=== PATIENT | female | born 1975 | race Caucasian/White ===

== ENCOUNTER 2018-05-27 10:58 | Emergency (ER) | payer OTHER ==
[~2018-05-27] VITALS: Ht 170.2 cm; Wt 81.6 kg
[~2018-05-27 10:58] MED LIST: CEPH-264 PO; HYDR-971 PO; SULF1TAB24 PO
[2018-05-27 11:38] LABS: BILIRUBIN,URINE NEGATIVE (NEG); CLARITY,URINE CLOUDY; COLOR,URINE YELLOW; NITRITE,URINE NEGATIVE (NEG); PH,URINE 5.5; PROTEIN,URINE 100 mg/dL (NEG-TRACE); UROBILINOGEN,URINE 0.2 mg/dL (0.2 mg/dL)
[2018-05-27 11:49] LABS: SQUAMOUS EPITHELIAL CELL,UR FEW /LPF
[2018-05-27 11:50] LABS: BACTERIA,URINE 0 /HPF (0-FEW); WBC,URINE 0 /HPF (0-4)
[2018-05-27 12:45] LABS: BASO # 0.1 x10^3/uL (0.0-0.2); BASO % 1 % (0-3); EOS # 0.3 x10^3/uL (0.0-0.7); EOS % 2 % (0-3); HEMATOCRIT 39.1 % (36.0-47.0); HEMOGLOBIN 13.9 g/dL (12.0-15.5); LYMPH # 2.3 x10^3/uL (1.0-4.8); LYMPH % 15 % (24-48); MEAN CORPUSCULAR HEMOGLOBIN 31 pg (25-35); MEAN CORPUSCULAR HGB CONC 36 g/dL (31-37); MEAN CORPUSCULAR VOLUME 88 fL (79-100); MONO # 0.5 x10^3/uL (0.0-1.1); MONO % 4 % (0-9); NEUT # 11.7 x10^3uL (1.8-7.7); NEUT % 78 % (31-73); PLATELET COUNT 308 x10^3/uL (140-400); RED BLOOD COUNT 4.44 x10^6/uL (3.50-5.40); RED CELL DISTRIBUTION WIDTH 13.5 % (11.5-14.5); WHITE BLOOD COUNT 14.9 x10^3/uL (4.0-11.0)
[2018-05-27] MEDS ORDERED: HYDROcodone/APAP 5/325MG 1 TAB TABLET PO ONE (12:45)
[2018-05-27 12:47] LABS: CALCIUM 8.7 mg/dL (8.5-10.1); CREATININE 0.5 mg/dL (0.6-1.0); GFR 135.3
[2018-05-27 12:53] LABS: ALBUMIN 2.8 g/dL (3.4-5.0); ALBUMIN/GLOBULIN RATIO 0.6 (1.0-1.7); TOTAL BILIRUBIN 0.2 mg/dL (0.2-1.0); TOTAL PROTEIN 7.2 g/dL (6.4-8.2)
[2018-05-27 13:08] VITALS: BP 151/75
--- NOTE | 2018-05-27 14:07 | RAD ---
CT of the abdomen and pelvis without contrast. 05/27/2018 INDICATION: Left flank pain. Hematuria. COMPARISON STUDY: None available. TECHNIQUE: Multidetector CT imaging of the abdomen and pelvis was obtained without the administration of IV contrast. FINDINGS: Heterogenous groundglass attenuation is seen throughout the visualized lung bases. Differential considerations include pulmonary edema, an atypical infectious process, or air-trapping. There is a 4 mm noncalcified nodule right lower lobe (axial image 15). Recommend CT surveillance as described at the bottom of report. The liver is diffusely low in attenuation. Findings, while nonspecific, most commonly reflects hepatic steatosis. The gallbladder has been removed. Spleen is unremarkable. The adrenal glands are unremarkable. Pancreas is unremarkable. There is no evidence of hydronephrosis, or nephrolithiasis. No ureteral stones are identified. The bladder appears to be grossly unremarkable. There is no bowel obstruction. No evidence of acute inflammatory process involving the bowel is identified. Appendix is unremarkable. No free fluid or free air is seen in the abdomen or pelvis. There is an approximately 3 cm cystic structure in the left adnexa. Fat stranding is noted most prominently within the plane between the posterior bladder and anterior uterus. The uterus is anteverted. Findings could reflect sequela of cystitis. Evaluation of the bladder wall is somewhat limited given lack of contrast and no low no overt thickening is identified. No evidence of acute osseous abnormality is seen. IMPRESSION: 1.No nephrolithiasis or acute obstructive uropathy is identified. Fat stranding noted most prominently in the plane between the posterior bladder and anterior uterus. Findings could reflect cystitis. Correlate with clinical findings and urinalysis. 2. 3 cm cystic structure in the left adnexa. Findings most likely represent an ovarian cyst. Noncontrast enhanced CT is limited for evaluation. Consider follow-up ultrasound as clinically indicated. 3. Heterogenous groundglass attenuation in bilateral lung bases. Findings could represent air-trapping, mild edema. Atypical infectious process is less likely but not excluded. 4. 4 mm noncalcified nodule, right lower lobe. Recommend CT surveillance is described below 5. Hepatic steatosis Pulmonary Nodule Followup: Fleischner Society recommendations (Radiology 2005; 237; 395-400): In a low risk patient: 4mm or less - No follow up required. >4-6mm- 12 month follow up, if unchanged, no further follow up. >6-8mm- 6-12 month follow up, then at 18-24 months if no change. >8mm- 3, 9, 24 month follow up or consideration of PET/CT. In a high risk patient: <4mm - 12 month follow up, if unchanged then no further follow up. >4-6mm- 6-12 month follow up, then at 18-24 months if no change. >6-8mm- 3-6 month follow up, then at 9-12 months and [address] DOSING PQRS STATEMENT: One or more of the following individualized dose reduction techniques were utilized for this examination: 1. Automated exposure control 2. Adjustment of the mA and/or kV according to patient size 3. Use of iterative reconstruction technique Electronically signed by: Juan Newman MD (05/27/2018 2:04 PM) [id number]
[2018-05-27] MEDS ORDERED: LEVO750T31 PO (14:23)
[2018-05-27] MEDS ORDERED: HYDR-971 PO (14:23)
--- NOTE | 2018-05-27 15:14 | PHYS DOC ---
Past Medical History Past Medical History: Diabetes-Type II, DVT, High Cholesterol, Hypertension, Other Additional Past Medical Histor: PE, COMPARTMENT SYNDROME, [place], Gallstones Past Surgical History: , Tubal ligation, Other Additional Past Surgical Histo: bilateral AKA Alcohol Use: None Drug Use: None Adult General Chief Complaint Chief Complaint: PAIN ON URINATION [facility] HPI Patient is a 42 yearOLD female with history of peripheral vascular disease, status post bilateral AKA smoking 2 packs a day presenting with urinary frequency urinary urgency and some left-sided intermittent abdominal pain for the last 10 days or so. No fever she is worried about a urinary tract infection so she came to the ER to be evaluated no vaginal discharge no vomiting abdominal pain is sharp and comes and goes intermittent in nature Review of Systems Review of Systems Constitutional: Denies fever or chills [] Eyes: Denies change in visual acuity, redness, or eye pain [] HENT: Denies nasal congestion or sore throat [] Respiratory: Denies cough or shortness of breath [] Cardiovascular: No additional information not addressed in HPI [] Neurologic: Denies headache, focal weakness or sensory changes [] Endocrine: Denies polyuria or polydipsia [] All other systems were reviewed and found to be within normal limits, except as documented in this note. Current Medications Current Medications Current Medications Medications (Trade) Dose Ordered Sig/Stewart Start Time Stop Time Status Last Admin Dose Admin Acetaminophen/ Hydrocodone Bitart (Lortab 5/325) 2 tab 1X ONCE 05/27/18 12:45 05/27/18 12:46 DC 05/27/18 12:45 2 TAB Allergies Allergies Allergies Coded Allergies Type Severity Reaction Last Updated Verified codeine Allergy Intermediate 06/17/15 No Physical Exam Physical Exam Constitutional: Well developed, well nourished, no acute distress, non-toxic appearance. [] HENT: Normocephalic, atraumatic, bilateral external ears normal, oropharynx moist, no oral exudates, nose normal. [] Eyes: PERRLA, EOMI, conjunctiva normal, no discharge. [] Neck: Normal range of motion, no tenderness, supple, no stridor. [] Pulmonary: Normal respiratory effort no increased work of breathing no obvious chest wall trauma Abdomen: Bowel sounds normal, soft, left lower quadrant mild tenderness, no masses, no pulsatile masses. [] Significant obesity noted somewhat difficult exam Skin: Warm, dry, no erythema, no rash. [] Back: No tenderness, no CVA tenderness. [] Extremities: Bilateral AKA Neurologic: Alert and oriented X 3, normal motor function, normal sensory function, no focal deficits noted. [] Psychologic: Affect normal, judgement normal, mood normal. [] Current Patient Data Vital Signs Vital Signs Date Time Temp Pulse Resp B/P (MAP) Pulse Ox O2 Delivery O2 Flow Rate FiO2 05/27/18 13:08 90 151/75 (100) 96 Room Air 05/27/18 11:30 98.3 16 98.3 Lab Values Laboratory Tests Test 05/27/18 11:30 05/27/18 11:35 05/27/18 12:25 Urine Collection Type Unknown Urine Color Yellow Urine Clarity Cloudy Urine pH 5.5 Urine Specific [place] >=1.030 Urine Protein 100 mg/dL (NEG-TRACE) Urine Glucose (UA) >=1000 mg/dL (NEG) Urine Ketones (Stick) Negative mg/dL (NEG) Urine Blood Small (NEG) Urine Nitrite Negative (NEG) Urine Bilirubin Negative (NEG) Urine Urobilinogen Dipstick 0.2 mg/dL (0.2 mg/dL) Urine Leukocyte Esterase Negative (NEG) Urine RBC 1-2 /HPF (0-2) Urine WBC 0 /HPF (0-4) Urine Squamous Epithelial Cells Few /LPF Urine Bacteria 0 /HPF (0-FEW) POC Urine HCG, Qualitative Hcg negative (Negative) White Blood Count 14.9 x10^3/uL (4.0-11.0) H Red Blood Count 4.44 x10^6/uL (3.50-5.40) Hemoglobin 13.9 g/dL (12.0-15.5) Hematocrit 39.1 % (36.0-47.0) Mean Corpuscular Volume 88 fL (79-100) Mean Corpuscular Hemoglobin 31 pg (25-35) Mean Corpuscular Hemoglobin Concent 36 g/dL (31-37) Red Cell Distribution Width 13.5 % (11.5-14.5) Platelet Count 308 x10^3/uL (140-400) Neutrophils (%) (Auto) 78 % (31-73) H Lymphocytes (%) (Auto) 15 % (24-48) L Monocytes (%) (Auto) 4 % (0-9) Eosinophils (%) (Auto) 2 % (0-3) Basophils (%) (Auto) 1 % (0-3) Neutrophils # (Auto) 11.7 x10^3uL (1.8-7.7) H Lymphocytes # (Auto) 2.3 x10^3/uL (1.0-4.8) Monocytes # (Auto) 0.5 x10^3/uL (0.0-1.1) Eosinophils # (Auto) 0.3 x10^3/uL (0.0-0.7) Basophils # (Auto) 0.1 x10^3/uL (0.0-0.2) Sodium Level 132 mmol/L (136-145) L Potassium Level 4.0 mmol/L (3.5-5.1) Chloride Level 97 mmol/L (98-107) L Carbon Dioxide Level 24 mmol/L (21-32) Anion Gap 11 (6-14) Blood Urea Nitrogen 6 mg/dL (7-20) L Creatinine 0.5 mg/dL (0.6-1.0) L Estimated GFR (Cockcroft-Gault) 135.3 BUN/Creatinine Ratio 12 (6-20) Glucose Level 351 mg/dL (70-99) H Calcium Level 8.7 mg/dL (8.5-10.1) Total Bilirubin 0.2 mg/dL (0.2-1.0) Aspartate Amino Transferase (AST) 18 U/L (15-37) Alanine Aminotransferase (ALT) 28 U/L (14-59) Alkaline Phosphatase 84 U/L (46-116) Total Protein 7.2 g/dL (6.4-8.2) Albumin 2.8 g/dL (3.4-5.0) L Albumin/Globulin Ratio 0.6 (1.0-1.7) L Laboratory Tests 05/27/18 12:25 Laboratory Tests 05/27/18 12:25 EKG EKG [] Radiology/Procedures Radiology/Procedures [] Impressions: IMPRESSION: 1.No nephrolithiasis or acute obstructive uropathy is identified. Fat stranding noted most prominently in the plane between the posterior bladder and anterior uterus. Findings could reflect cystitis. Correlate with clinical findings and urinalysis. 2. 3 cm cystic structure in the left adnexa. Findings most likely represent an ovarian cyst. Noncontrast enhanced CT is limited for evaluation. Consider follow-up ultrasound as clinically indicated. 3. Heterogenous groundglass attenuation in bilateral lung bases. Findings could represent air-trapping, mild edema. Atypical infectious process is less likely but not excluded. 4. 4 mm noncalcified nodule, right lower lobe. Recommend CT surveillance is described below 5. Hepatic steatosis Pulmonary Nodule Followup: Fleischner Society recommendations (Radiology 2005; 237; 395-400): In a low risk patient: 4mm or less - No follow up required. >4-6mm- 12 month follow up, if unchanged, no further follow up. >6-8mm- 6-12 month follow up, then at 18-24 months if no change. >8mm- 3, 9, 24 month follow up or consideration of PET/CT. In a high risk patient: <4mm - 12 month follow up, if unchanged then no further follow up. >4-6mm- 6-12 month follow up, then at 18-24 months if no change. >6-8mm- 3-6 month follow up, then at 9-12 months and [address] DOSING PQRS STATEMENT: One or more of the following individualized dose reduction techniques were utilized for this examination: 1. Automated exposure control 2. Adjustment of the mA and/or kV according to patient size 3. Use of iterative reconstruction technique Electronically signed by: Juan Temple MD (05/27/2018 2:04 PM) [id number] DICTATED and SIGNED BY: JUAN TEMPLE MD DATE: 05/27/18 1353 Course & Med Decision Making Course & Med Decision Making Pertinent Labs and Imaging studies reviewed. (See chart for details) []42-year-old female with the above medical problems presenting with intermittent left lower quadrant abdominal pain as well as urinary frequency and urgency for the last week or more. Initial urinalysis in urgent care side showed no UTI so I brought her to the back and we did a more extensive workup CT scan had the above findings Likely ovarian cyst given the time course and how well-appearing the patient is I think we can defer a pelvic ultrasound to a more routine outpatient setting she says she does have good follow-up I recommended an ultrasound in 4-6 weeks she does not clinically have torsion to me. Noted the cystitis finding given her symptoms and the cystitis finding on CT we will treat with antibiotics just in case. I told her also about the lung nodule and the importance of follow-up for this and I encouraged her to stop smoking she understands. In addition Levaquin for the UTI should also cover possible pneumonia seen on CT scan. Estimated 15 minutes discussing the care with the patient and the son there in agreement. Also blood pressure was elevateD AND PT KNOWS TO FOLOW UP FOR THS IN ONE MONTH Jackie Disclaimer Jackie Disclaimer This electronic medical record was generated, in whole or in part, using a voice recognition dictation system. Departure Departure Impression: Primary Impression: Ovarian cyst Additional Impression: Elevated blood pressure reading Disposition: HOME, SELF-CARE Condition: IMPROVED Patient Instructions: Ovarian Cyst, [id number] Additional Instructions: 1.YOU NEED REPEAT CT SCAN IN 6 MONHTS OR SO FOR A 4 MM LUNG NODULE IN THE RIGHT LOWER LOBE. 2. YOU NEED PELVIC ULTRASOUND IN 6 WEEKS TO MONITOR THE OVARIAN CYST ON OVARY. 3. YOU MAY HAVE BLADDER INFECTION AND PNEUMONIA. PLEASE TAKE ANTBIOTICS. Scripts Levofloxacin (LEVAQUIN) 750 Mg Tablet 1 TAB PO DAILY, #7 TAB Prov: MORIAH BROWNLEE MD 05/27/18 Hydrocodone/Apap 5-325 (NORCO 5-325 TABLET) 1 Each Tablet 1-2 EACH PO PRN Q6HRS PRN for PAIN, #15 as needed for pain Prov: MORIAH BROWNLEE MD 05/27/18 Problem Qualifiers MORIAH BROWNLEE MD May 27, 2018 15:14
== END 2018-05-27 14:36 | disposition home or self-care (01) ==
LOC: ER 10:58
DX: N83.202 Unspecified ovarian cyst, left side (principal); R03.0 Elevated blood-pressure reading, without diagnosis of hypertension; E11.9 Type 2 diabetes mellitus without complications; E78.00 Pure hypercholesterolemia, unspecified; I10 Essential (primary) hypertension; Z88.5 Allergy status to narcotic agent; Z86.718 Personal history of other venous thrombosis and embolism
CPT/HCPCS: 36415; 74176; 80053; 81001; 81025; 85025; 99285

== ENCOUNTER 2018-06-05 15:50 | Emergency (ER) | payer OTHER ==
[~2018-06-05] VITALS: Ht 170.2 cm; Wt 81.6 kg
[~2018-06-05 15:50] MED LIST changes: +LEVO750T31 PO
[2018-06-05 16:20] LABS: BILIRUBIN,URINE NEGATIVE (NEG); CLARITY,URINE CLEAR; COLOR,URINE YELLOW; NITRITE,URINE NEGATIVE (NEG); PROTEIN,URINE 100 mg/dL (NEG-TRACE); UROBILINOGEN,URINE 0.2 mg/dL (0.2 mg/dL)
--- NOTE | 2018-06-05 16:32 | PHYS DOC ---
Past Medical History Past Medical History: Diabetes-Type II, DVT, High Cholesterol, Hypertension, Other Additional Past Medical Histor: PE, COMPARTMENT SYNDROME, [place], Gallstones Past Surgical History: , Tubal ligation, Other Additional Past Surgical Histo: bilateral AKA Alcohol Use: None Drug Use: None Adult General Chief Complaint Chief Complaint: LOWER EXT PAIN [facility] HPI Patient is a 42 year old female with history of hypertension, diabetes type 2, hypertension and high cholesterol who presents today complaining of 6 out of 10 pain to the left lateral thigh that has been going on for one week. Patient has no known injury. Has history of bilateral AKA. Patient describes the pain as sharp. She states the pain is constant. She states she was seen in the ED 9 days ago and was diagnosed with UTI put on Levaquin as well as left ovarian cyst. She states she has an appointment with her own doctor on June 11, 2018. She states she cannot wait until then. She states her pain has continued. Patient denies any fever, nausea vomiting. Review of Systems Review of Systems Constitutional: Denies fever or chills [] Eyes: Denies change in visual acuity, redness, or eye pain [] HENT: Denies nasal congestion or sore throat [] Respiratory: Denies cough or shortness of breath [] Cardiovascular: No additional information not addressed in HPI [] GI: Reports left pelvic pain. Denies nausea, vomiting, bloody stools or diarrhea [] : Denies dysuria or hematuria [] Musculoskeletal: Left lateral thigh pain Integument: Denies rash or skin lesions [] Neurologic: Denies headache, focal weakness or sensory changes [] All other systems were reviewed and found to be within normal limits, except as documented in this note. Current Medications Current Medications Current Medications Medications (Trade) Dose Ordered Sig/Stewart Start Time Stop Time Status Last Admin Dose Admin Acetaminophen/ Hydrocodone Bitart (Lortab 5/325) 2 tab 1X ONCE 06/05/18 16:45 06/05/18 16:46 DC Allergies Allergies Allergies Coded Allergies Type Severity Reaction Last Updated Verified codeine Allergy Intermediate 06/17/15 No Physical Exam Physical Exam Constitutional: Well developed, well nourished, no acute distress, non-toxic appearance. [] HENT: Normocephalic, atraumatic, bilateral external ears normal, oropharynx moist, no oral exudates, nose normal. [] Eyes: PERRLA, EOMI, conjunctiva normal, no discharge. [] Neck: Normal range of motion, no tenderness, supple, no stridor. [] Cardiovascular:Heart rate regular rhythm, no murmur [] Lungs & Thorax: Bilateral breath sounds clear to auscultation [] Abdomen: Bowel sounds normal, soft, no tenderness, no masses, no pulsatile masses. [] Skin: Warm, dry, no erythema, no rash. [] Back: No tenderness, no CVA tenderness. [] Extremities: No tenderness, no cyanosis, no clubbing, ROM intact, no edema. Bilateral AKA Neurologic: Alert and oriented X 3, normal motor function, normal sensory function, no focal deficits noted. [] Psychologic: Affect normal, judgement normal, mood normal. [] Current Patient Data Vital Signs Vital Signs Date Time Temp Pulse Resp B/P (MAP) Pulse Ox O2 Delivery O2 Flow Rate FiO2 06/05/18 17:30 81 153/77 (102) 92 Room Air 06/05/18 16:40 18 06/05/18 15:55 98.6 98.6 Lab Values Laboratory Tests Test 06/05/18 16:00 Urine Collection Type Unknown Urine Color Yellow Urine Clarity Clear Urine pH 6.0 Urine Specific [place] 1.025 Urine Protein 100 mg/dL (NEG-TRACE) Urine Glucose (UA) >=1000 mg/dL (NEG) Urine Ketones (Stick) Negative mg/dL (NEG) Urine Blood Moderate (NEG) Urine Nitrite Negative (NEG) Urine Bilirubin Negative (NEG) Urine Urobilinogen Dipstick 0.2 mg/dL (0.2 mg/dL) Urine Leukocyte Esterase Negative (NEG) Urine RBC 1-2 /HPF (0-2) Urine WBC Occ /HPF (0-4) Urine Squamous Epithelial Cells Few /LPF Urine Bacteria Few /HPF (0-FEW) EKG EKG [] Radiology/Procedures Radiology/Procedures []PROCEDURE: HIP LEFT 2V WITH PELVIS EXAM: Pelvis and left hip, 3 views. HISTORY: Pain. COMPARISON: None. FINDINGS: A frontal view the pelvis and 2 views of the left hip are obtained. There is no fracture, dislocation or subluxation. There are clips within the proximal left thigh. IMPRESSION: No acute osseous finding. Electronically signed by: Anabel Romo MD (06/05/2018 4:38 PM) [id number] DICTATED and SIGNED BY: ANABEL ROMO MD DATE: 06/05/18 0472 Course & Med Decision Making Course & Med Decision Making Pertinent Labs and Imaging studies reviewed. (See chart for details) This is a 42-year-old female patient presenting to the ED today with complaints of left lateral thigh pain, no injury. Pain appears musculoskeletal. Patient has history of bilateral AKA. Also complaining of left pelvic pain. She was seen in the ED a couple days ago and was diagnosed with left ovarian cyst. She states she is out of hydrocodone. She has an appointment with her PCP on June 11, 2018. Urine analysis is negative for infection, left hip x-rays including pelvic and negative for any acute findings. Patient was given prescription for hydrocodone 10 tablets and instructed to use it twice leaving until her appointment with her PCP on June 11, 2018. Also reminded to follow- up with the C.O.D. CLERK for repeat ultrasound for the left ovarian cyst. Staff Physician Addendum: I was working in the ER during the course of this patient's visit. I was available for consultation as needed, but I was not directly involved in the care of this patient. Dragon Disclaimer Dragon Disclaimer This electronic medical record was generated, in whole or in part, using a voice recognition dictation system. Departure Departure Impression: Primary Impression: Left thigh pain Additional Impression: Left lower quadrant pain Disposition: 01 HOME, SELF-CARE Condition: STABLE Referrals: SORAYA MOORE MD (PCP) Follow-up in one week Patient Instructions: Musculoskeletal Pain Additional Instructions: You were evaluated in the emergency room for what appears to be musculoskeletal pain to the left lateral thigh. We put you on pain medications, take them wisely until you're seen by your primary care doctor as well as C.O.D. CLERK. Please follow-up with the C.O.D. CLERK for repeat ultrasound for the left ovarian cyst that you were diagnosed with the last time you were seen in the emergency room. Scripts Hydrocodone/Apap 5-325 (NORCO 5-325 TABLET) 1 Each Tablet 1 TAB PO Q8HRS PRN for PAIN, #10 TAB Prov: DEISY RUIZ APRN 06/05/18 Problem Qualifiers DEISY RUIZ APRN Jun 05, 2018 16:32 MORIAH BROWNLEE MD Jun 06, 2018 07:15
[2018-06-05] MEDS: HYDROcodone/APAP 5/325MG 1 TAB TABLET PO ONE ×2 (16:39→16:40)
[2018-06-05 16:40] LABS: BACTERIA,URINE FEW /HPF (0-FEW); SQUAMOUS EPITHELIAL CELL,UR FEW /LPF; WBC,URINE OCC /HPF (0-4)
--- NOTE | 2018-06-05 16:42 | RAD ---
EXAM: Pelvis and left hip, 3 views. HISTORY: Pain. COMPARISON: None. FINDINGS: A frontal view the pelvis and 2 views of the left hip are obtained. There is no fracture, dislocation or subluxation. There are clips within the proximal left thigh. IMPRESSION: No acute osseous finding. Electronically signed by: Anabel Mena MD (06/05/2018 4:38 PM) [email or web address]
[2018-06-05] MEDS ORDERED: HYDR-971 PO (17:10)
[2018-06-05 17:30] VITALS: BP 153/77
== END 2018-06-05 17:50 | disposition home or self-care (01) ==
LOC: ER 15:50
DX: M79.652 Pain in left thigh (principal); R10.32 Left lower quadrant pain; I10 Essential (primary) hypertension; E11.9 Type 2 diabetes mellitus without complications; E78.00 Pure hypercholesterolemia, unspecified; Z86.718 Personal history of other venous thrombosis and embolism; Z89.612 Acquired absence of left leg above knee; Z89.611 Acquired absence of right leg above knee; Z86.711 Personal history of pulmonary embolism; Z98.890 Other specified postprocedural states; Z98.51 Tubal ligation status; Z88.5 Allergy status to narcotic agent
CPT/HCPCS: 73502; 81001; 99285

== ENCOUNTER 2018-12-05 13:02 | Emergency (ER) | payer OTHER ==
[~2018-12-05] VITALS: Ht 134.6 cm; Wt 63.5 kg
[~2018-12-05 13:02] MED LIST changes: +HYDR-3164 PO; -HYDR-971 PO
[2018-12-05] MEDS ORDERED: IV NORMAL SALINE 1000ML BAG 1,000 ML IV ONE (13:45)
[2018-12-05 13:49] LABS: BILIRUBIN,URINE NEGATIVE (NEG); CLARITY,URINE CLEAR; COLOR,URINE YELLOW; NITRITE,URINE NEGATIVE (NEG); PH,URINE 5.5; PROTEIN,URINE 30 mg/dL (NEG-TRACE); UROBILINOGEN,URINE 0.2 mg/dL (0.2 mg/dL)
[2018-12-05 13:56] LABS: BARBITURATES NEG (NEG); BENZODIAZEPINES NEG (NEG); CANNABINOIDS NEG (NEG); COCAINE NEG (NEG); METHADONE NEG (NEG); OPIATES POS (NEG); PHENCYCLIDINE NEG (NEG)
[2018-12-05 13:58] LABS: AMPHETAMINE/METHAMPHETAMINE NEG (NEG)
[2018-12-05 14:00] LABS: BACTERIA,URINE MANY /HPF (0-FEW); RBC,URINE OCC /HPF (0-2)
[2018-12-05] MEDS ORDERED: IOHEXOL 300 MG/ML 100ML VIAL. IV ONE (14:00)
[2018-12-05 14:01] LABS: SQUAMOUS EPITHELIAL CELL,UR OCC /LPF
[2018-12-05 14:15] LABS: BASO # 0.1 x10^3/uL (0.0-0.2); BASO % 1 % (0-3); EOS # 0.3 x10^3/uL (0.0-0.7); EOS % 3 % (0-3); HEMOGLOBIN 13.8 g/dL (12.0-15.5); LYMPH # 2.5 x10^3/uL (1.0-4.8); LYMPH % 27 % (24-48); MEAN CORPUSCULAR HEMOGLOBIN 30 pg (25-35); MEAN CORPUSCULAR HGB CONC 35 g/dL (31-37); MEAN CORPUSCULAR VOLUME 87 fL (79-100); MONO # 0.3 x10^3/uL (0.0-1.1); MONO % 4 % (0-9); NEUT # 6.3 x10^3uL (1.8-7.7); NEUT % 67 % (31-73); PLATELET COUNT 302 x10^3/uL (140-400); RED BLOOD COUNT 4.62 x10^6/uL (3.50-5.40); RED CELL DISTRIBUTION WIDTH 14.8 % (11.5-14.5); WHITE BLOOD COUNT 9.4 x10^3/uL (4.0-11.0)
[2018-12-05] MEDS ORDERED: CONTRAST GIVEN. MC PRN (14:15)
[2018-12-05] MEDS ORDERED: fentaNYL PF VIAL 100 MCG/2 ML VIAL IV ONE (14:15)
[2018-12-05 14:24] LABS: CALCIUM 8.2 mg/dL (8.5-10.1); CREATININE 0.5 mg/dL (0.6-1.0); GFR 134.7
[2018-12-05 14:31] LABS: ALBUMIN 2.8 g/dL (3.4-5.0); ALBUMIN/GLOBULIN RATIO 0.7 (1.0-1.7); TOTAL BILIRUBIN 0.2 mg/dL (0.2-1.0); TOTAL PROTEIN 6.9 g/dL (6.4-8.2)
[2018-12-05 15:00] VITALS: BP 160/77
--- NOTE | 2018-12-05 15:25 | RAD ---
CT of the abdomen and pelvis with contrast 12/05/2018 INDICATION: Nausea, vomiting, diarrhea. COMPARISON STUDY: CT the abdomen and pelvis without contrast May 17, 2018. TECHNIQUE: Multidetector CT imaging of the abdomen and pelvis is obtained without the administration of contrast FINDINGS: Previously seen 4 mm nodule, right lower lobe has decreased in size interim now measuring between 2 and 3 mm. Heterogenous attenuation is seen lung bases. This could represent air trapping as can be seen with obstructive lung disease such as asthma or COPD. Edema is less likely. Atelectasis could also have this appearance. The liver is diffusely low in attenuation suggesting hepatic steatosis. Prior cholecystectomy noted. The adrenal glands, spleen, and pancreas demonstrate no acute abnormality. The kidneys are grossly unremarkable without evidence of hydronephrosis or nephrolithiasis. There is no bowel obstruction. No evidence of acute inflammatory change involving the visualized bowel is identified. The appendix is unremarkable. Left adnexal cystic lesion has resolved. No significant free fluid or free air seen in the abdomen or pelvis. No evidence of acute osseous abnormality is identified. Small fat filled umbilical hernia is noted. Tiny inferior ventral hernia noted. Surgical clips in left groin noted IMPRESSION: 1. No CT evidence of acute intra-abdominal abnormality. 2. Persistent heterogenous attenuation lung bases which could represent air trapping as can be seen as COPD or asthma. Edema is less likely. 3. Hepatic steatosis, similar to prior exam CT DOSING PQRS STATEMENT: One or more of the following individualized dose reduction techniques were utilized for this examination: 1. Automated exposure control 2. Adjustment of the mA and/or kV according to patient size 3. Use of iterative reconstruction technique Electronically signed by: Juan Newman MD (12/05/2018 3:23 PM) [id number]
[2018-12-05] MEDS ORDERED: DIPH1TAB PO (16:40)
[2018-12-05] MEDS ORDERED: FAMO20TA5 PO (16:40)
[2018-12-05] MEDS ORDERED: ONDA4TAB7 PO (16:40)
--- NOTE | 2018-12-05 16:41 | PHYS DOC ---
Past Medical History Past Medical History: Diabetes-Type II, DVT, High Cholesterol, Hypertension, Other Additional Past Medical Histor: PE, COMPARTMENT SYNDROME, QAWALANGIN, Gallstones Past Surgical History: , Tubal ligation, Other Additional Past Surgical Histo: bilateral AKA Alcohol Use: None Drug Use: None Adult General Chief Complaint Chief Complaint: NAUSEA/VOMITING/DIARRHA HPI HPI Patient is a 43 year old female with history of diabetes type 2, hypertension, high cholesterol, bilateral below the knee amputations, who presents today complaining of mild generalized abdominal pain, nausea vomiting and diarrhea that has been going on for 1 month. Patient denies any fever. Denies any hematemesis or melena. She states she was seen at [facility] 2 weeks ago and was worked up. She states she was informed she has a stomach virus. She states she was given medications and symptoms had subsided for a while. She states symptoms resumed a week later. Review of Systems Review of Systems Constitutional: Denies fever or chills [] Eyes: Denies change in visual acuity, redness, or eye pain [] HENT: Denies nasal congestion or sore throat [] Respiratory: Denies cough or shortness of breath [] Cardiovascular: No additional information not addressed in HPI [] GI: Reports abdominal pain, nausea vomiting and diarrhea : Denies dysuria or hematuria [] Musculoskeletal: Denies back pain or joint pain [] Integument: Denies rash or skin lesions [] Neurologic: Denies headache, focal weakness or sensory changes [] All other systems were reviewed and found to be within normal limits, except as documented in this note. Current Medications Current Medications Current Medications Medications (Trade) Dose Ordered Sig/Stewart Start Time Stop Time Status Last Admin Dose Admin Fentanyl Citrate (Fentanyl 2ml Vial) 50 mcg 1X ONCE 12/05/18 14:15 12/05/18 14:16 DC 12/05/18 14:21 50 MCG Info (CONTRAST GIVEN -- Rx MONITORING) 1 each PRN DAILY PRN 12/05/18 14:15 12/07/18 14:14 Iohexol (Omnipaque 300 Mg/ml) 75 ml 1X ONCE 12/05/18 14:00 12/05/18 14:02 DC 12/05/18 14:00 75 ML Sodium Chloride 1,000 ml @ 1,000 mls/hr 1X ONCE 12/05/18 13:45 12/05/18 14:44 DC 12/05/18 14:21 1,000 MLS/HR Allergies Allergies Allergies Coded Allergies Type Severity Reaction Last Updated Verified codeine Allergy Intermediate 06/17/15 No Physical Exam Physical Exam Constitutional: Well developed, well nourished, no acute distress, non-toxic appearance. [] HENT: Normocephalic, atraumatic, bilateral external ears normal, oropharynx moist, no oral exudates, nose normal. [] Eyes: PERRLA, EOMI, conjunctiva normal, no discharge. [] Neck: Normal range of motion, no tenderness, supple, no stridor. [] Cardiovascular:Heart rate regular rhythm, no murmur [] Lungs & Thorax: Bilateral breath sounds clear to auscultation [] Abdomen: Bowel sounds normal, soft, no tenderness, no masses, no pulsatile masses. [] Skin: Warm, dry, no erythema, no rash. [] Back: No tenderness, no CVA tenderness. [] Extremities: Bilateral below the knee amputations noted. No tenderness, no cyanosis, no clubbing, ROM intact, no edema. [] Neurologic: Alert and oriented X 3, normal motor function, normal sensory function, no focal deficits noted. [] Psychologic: Affect normal, judgement normal, mood normal. [] Current Patient Data Vital Signs Vital Signs Date Time Temp Pulse Resp B/P (MAP) Pulse Ox O2 Delivery O2 Flow Rate FiO2 12/05/18 15:00 84 16 160/77 (104) 97 Room Air 12/05/18 13:24 98.9 98.9 Lab Values Laboratory Tests Test 12/05/18 13:15 12/05/18 13:52 Urine Color Yellow Urine Clarity Clear Urine pH 5.5 Urine Specific [place] 1.020 Urine Protein 30 mg/dL (NEG-TRACE) Urine Glucose (UA) >=1000 mg/dL (NEG) Urine Ketones (Stick) Negative mg/dL (NEG) Urine Blood Trace (NEG) Urine Nitrite Negative (NEG) Urine Bilirubin Negative (NEG) Urine Urobilinogen Dipstick 0.2 mg/dL (0.2 mg/dL) Urine Leukocyte Esterase Negative (NEG) Urine RBC Occ /HPF (0-2) Urine WBC 1-4 /HPF (0-4) Urine Squamous Epithelial Cells Occ /LPF Urine Bacteria Many /HPF (0-FEW) Urine Opiates Screen Pos (NEG) Urine Methadone Screen Neg (NEG) Urine Barbiturates Neg (NEG) Urine Phencyclidine Screen Neg (NEG) Urine Amphetamine/Methamphetamine Neg (NEG) Urine Benzodiazepines Screen Neg (NEG) Urine Cocaine Screen Neg (NEG) Urine Cannabinoids Screen Neg (NEG) Urine Ethyl Alcohol Neg (NEG) White Blood Count 9.4 x10^3/uL (4.0-11.0) Red Blood Count 4.62 x10^6/uL (3.50-5.40) Hemoglobin 13.8 g/dL (12.0-15.5) Hematocrit 40.0 % (36.0-47.0) Mean Corpuscular Volume 87 fL (79-100) Mean Corpuscular Hemoglobin 30 pg (25-35) Mean Corpuscular Hemoglobin Concent 35 g/dL (31-37) Red Cell Distribution Width 14.8 % (11.5-14.5) H Platelet Count 302 x10^3/uL (140-400) Neutrophils (%) (Auto) 67 % (31-73) Lymphocytes (%) (Auto) 27 % (24-48) Monocytes (%) (Auto) 4 % (0-9) Eosinophils (%) (Auto) 3 % (0-3) Basophils (%) (Auto) 1 % (0-3) Neutrophils # (Auto) 6.3 x10^3uL (1.8-7.7) Lymphocytes # (Auto) 2.5 x10^3/uL (1.0-4.8) Monocytes # (Auto) 0.3 x10^3/uL (0.0-1.1) Eosinophils # (Auto) 0.3 x10^3/uL (0.0-0.7) Basophils # (Auto) 0.1 x10^3/uL (0.0-0.2) Sodium Level 132 mmol/L (136-145) L Potassium Level 4.0 mmol/L (3.5-5.1) Chloride Level 96 mmol/L (98-107) L Carbon Dioxide Level 24 mmol/L (21-32) Anion Gap 12 (6-14) Blood Urea Nitrogen 9 mg/dL (7-20) Creatinine 0.5 mg/dL (0.6-1.0) L Estimated GFR (Cockcroft-Gault) 134.7 BUN/Creatinine Ratio 18 (6-20) Glucose Level 336 mg/dL (70-99) H Calcium Level 8.2 mg/dL (8.5-10.1) L Total Bilirubin 0.2 mg/dL (0.2-1.0) Aspartate Amino Transferase (AST) 23 U/L (15-37) Alanine Aminotransferase (ALT) 30 U/L (14-59) Alkaline Phosphatase 66 U/L (46-116) Total Protein 6.9 g/dL (6.4-8.2) Albumin 2.8 g/dL (3.4-5.0) L Albumin/Globulin Ratio 0.7 (1.0-1.7) L Lipase 303 U/L (73-393) Ethyl Alcohol Level < 10 mg/dL (0-10) Laboratory Tests 12/05/18 13:52 Laboratory Tests 12/05/18 13:52 EKG EKG [] Radiology/Procedures Radiology/Procedures []PROCEDURE: CT ABD PELV W/ IV CONTRST ONLY CT of the abdomen and pelvis with contrast 12/05/2018 INDICATION: Nausea, vomiting, diarrhea. COMPARISON STUDY: CT the abdomen and pelvis without contrast May 17, 2018. TECHNIQUE: Multidetector CT imaging of the abdomen and pelvis is obtained without the administration of contrast FINDINGS: Previously seen 4 mm nodule, right lower lobe has decreased in size interim now measuring between 2 and 3 mm. Heterogenous attenuation is seen lung bases. This could represent air trapping as can be seen with obstructive lung disease such as asthma or COPD. Edema is less likely. Atelectasis could also have this appearance. The liver is diffusely low in attenuation suggesting hepatic steatosis. Prior cholecystectomy noted. The adrenal glands, spleen, and pancreas demonstrate no acute abnormality. The kidneys are grossly unremarkable without evidence of hydronephrosis or nephrolithiasis. There is no bowel obstruction. No evidence of acute inflammatory change involving the visualized bowel is identified. The appendix is unremarkable. Left adnexal cystic lesion has resolved. No significant free fluid or free air seen in the abdomen or pelvis. No evidence of acute osseous abnormality is identified. Small fat filled umbilical hernia is noted. Tiny inferior ventral hernia noted. Surgical clips in left groin noted IMPRESSION: 1. No CT evidence of acute intra-abdominal abnormality. 2. Persistent heterogenous attenuation lung bases which could represent air trapping as can be seen as COPD or asthma. Edema is less likely. 3. Hepatic steatosis, similar to prior exam CT DOSING PQRS STATEMENT: One or more of the following individualized dose reduction techniques were utilized for this examination: 1. Automated exposure control 2. Adjustment of the mA and/or kV according to patient size 3. Use of iterative reconstruction technique Electronically signed by: Juan Temple MD (12/05/2018 3:23 PM) [facility] DICTATED and SIGNED BY: JUAN TEMPLE MD DATE: 12/05/18 1523 Course & Med Decision Making Course & Med Decision Making Pertinent Labs and Imaging studies reviewed. (See chart for details) This is a 43-year-old female patient presented to the ED today with nausea, vomiting, diarrhea, abdominal pain, symptoms for 1 month. Patient was already seen at [facility] 2 weeks ago, was worked up and informed she has a virus. She comes back today with the same symptoms. CBC with a normal WBC, CMP with glucose of 336 anion gap is normal, patient has known history of diabetes, encouraged to ensure he she is using her insulin, lipase is normal, urine analysis is negative for infection, CT of the abdomen and pelvic is negative for any acute findings. CT of the abdomen and pelvic is negative for any acute findings. Patient was discharged with instructions to follow-up with GI. She is well known to this ED for chronic pain related complaints. She was discharged to home. Discharged with Dimotil and Radhames Mejia Disclaimer Dragon Disclaimer This electronic medical record was generated, in whole or in part, using a voice recognition dictation system. Departure Departure Impression: Primary Impression: Abdominal pain, generalized Additional Impression: Vomiting and diarrhea Disposition: 01 HOME, SELF-CARE Condition: STABLE Referrals: SORAYA MOORE MD (PCP) Follow-up in the course of this week or next week SILVANA MONTIEL MD follow up in 1 week Patient Instructions: Abdominal Pain, Diarrhea, [id number], Nausea and Vomiting, [id number] Additional Instructions: You were elevated in the emergency room for abdominal pain, nausea vomiting and diarrhea. Your work up in the emergency room was negative for any acute findings. 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 Scripts Diphenoxylate Hcl/Atropine (LOMOTIL TABLET) 1 Each Tablet 1 TAB PO TID, #30 TAB Prov: DEISY RUIZ APRN 12/05/18 Famotidine (FAMOTIDINE) 20 Mg Tablet 20 MG PO DAILY, #14 TAB Prov: DEISY RUIZ APRN 12/05/18 Ondansetron Hcl (ZOFRAN) 4 Mg Tablet 1 TAB PO Q6HRS, #20 TAB Prov: DEISY RUIZ APRN 12/05/18 Problem Qualifiers DEISY RUIZ APRN Dec 05, 2018 16:41
--- NOTE | 2018-12-09 15:13 | VNOTE ---
CALL BACK NOTE CALL BACK Microbiology 12/05/18 Urine Culture - Final, Complete 12/05/18 Urine Culture Result 1 (MEGAN) - Final, Complete 12/05/18 Antimicrobic Susceptibility - Final, Complete Busy signal on December 19, 2018 at 1520. Patient needs Macrobid 100 mg tablets take 1 tablet twice a day 7 days dispense 14 tablets no refills. JANIA GONZALEZ Dec 09, 2018 15:13
== END 2018-12-05 16:50 | disposition home or self-care (01) ==
LOC: ER 13:02
DX: R10.84 Generalized abdominal pain (principal); R11.2 Nausea with vomiting, unspecified; R19.7 Diarrhea, unspecified; E78.00 Pure hypercholesterolemia, unspecified; I10 Essential (primary) hypertension; E11.9 Type 2 diabetes mellitus without complications; Z86.718 Personal history of other venous thrombosis and embolism; Z98.51 Tubal ligation status; Z88.5 Allergy status to narcotic agent
CPT/HCPCS: 36415; 74177; 80053; 80307; 81001; 83690; 85025; 87086; 96361; 96374; 99284; G0480; J3010; J7030; Q9967; 87186

== ENCOUNTER 2019-04-13 14:32 | Emergency (ER) | payer OTHER ==
[~2019-04-13] VITALS: Ht 91.4 cm; Wt 83.9 kg
[~2019-04-13 14:32] MED LIST changes: +DIPH1TAB PO; +FAMO20TA5 PO; +ONDA4TAB7 PO
[2019-04-13 15:32] VITALS: BP 169/82
[2019-04-13] MEDS ORDERED: ONDANSETRON PF 4 MG/2 ML VIAL. IV ONE (15:45)
[2019-04-13] MEDS ORDERED: KETOROLAC 30 MG/ML VIAL. IV ONE (15:45)
[2019-04-13 16:24] LABS: ANION GAP 8 (6-14); BLOOD UREA NITROGEN 16 mg/dL (7-20); CALCIUM 6.8 mg/dL (8.5-10.1); CARBON DIOXIDE 26 mmol/L (21-32); CHLORIDE 91 mmol/L (98-107); GLUCOSE 441 mg/dL (70-99); POTASSIUM 4.4 mmol/L (3.5-5.1); SODIUM 125 mmol/L (136-145)
[2019-04-13 16:30] LABS: ALBUMIN 2.3 g/dL (3.4-5.0); ALK PHOS 71 U/L (46-116); MAGNESIUM 1.5 mg/dL (1.8-2.4); TOTAL BILIRUBIN 0.6 mg/dL (0.2-1.0)
[2019-04-13 16:46] LABS: BASO # 0.2 x10^3/uL (0.0-0.2); BASO % 2 % (0-3); EOS # 0.3 x10^3/uL (0.0-0.7); EOS % 4 % (0-3); HEMATOCRIT 40.8 % (36.0-47.0); LYMPH # 1.2 x10^3/uL (1.0-4.8); LYMPH % 16 % (24-48); MEAN CORPUSCULAR VOLUME 90 fL (79-100); MONO % 14 % (0-9); NEUT # 4.8 x10^3/uL (1.8-7.7); NEUT % 64 % (31-73); PLATELET COUNT 298 x10^3/uL (140-400); RED BLOOD COUNT 4.56 x10^6/uL (3.50-5.40); RED CELL DISTRIBUTION WIDTH 14.1 % (11.5-14.5); WHITE BLOOD COUNT 7.4 x10^3/uL (4.0-11.0)
--- NOTE | 2019-04-13 17:04 | RAD ---
PQRS Compliance Statement: One or more of the following individualized dose reduction techniques were utilized for this examination: 1. Automated exposure control 2. Adjustment of the mA and/or kV according to patient size 3. Use of iterative reconstruction technique CT ABDOMEN PELVIS WO CONTRAST Clinical Indication: Flank pain on the left. Comparison: CT abdomen and pelvis with contrast December 05, 2018. Technique: Helical CT imaging of the abdomen and pelvis is performed without IV or oral contrast. Findings: Evaluation of solid organs and bowel is limited without oral and IV contrast, decreasing sensitivity for detection of pathology. There is mosaic attenuation pattern of groundglass opacities in the lung bases. Linear opacities in the right middle lobe and lingula may be scarring or discoid atelectasis. Lung base appearance is similar to prior study. Coronary artery disease. Cardiac size is normal. There is moderate fatty infiltration of the liver. There is hepatomegaly. Cholecystectomy. The spleen, pancreas, adrenal glands, and abdominal aorta caliber are normal. 2 tiny calcifications in the left kidney may be vascular. No hydronephrosis is seen. There is no ureteral calculus. Stomach unremarkable. Small fat-containing umbilical hernia. There is no dilated small bowel. Moderate colon stool volume. No colon wall thickening. The appendix is normal. No abdominal adenopathy or free fluid. Urinary bladder is mildly distended, otherwise normal. Uterus and ovaries unremarkable. No pelvic free fluid. There are left inguinal surgical clips. No acute bone abnormality. IMPRESSION: 1. No obstructive uropathy. 2. Mosaic attenuation pattern in the lung bases is again noted, common etiology is small airways disease. 3. Hepatomegaly. Fatty infiltration of the liver. Electronically signed by: Gareth Saenz MD (04/13/2019 5:01 PM) [facility]
[2019-04-13 17:06] LABS: ALT (SGPT) 35 U/L (14-59)
[2019-04-13 17:08] LABS: ALBUMIN/GLOBULIN RATIO 0.5 (1.0-1.7); TOTAL PROTEIN 6.6 g/dL (6.4-8.2)
[2019-04-13 17:17] LABS: HEMOGLOBIN 13.9 g/dL (12.0-15.5)
[2019-04-13 17:18] LABS: MEAN CORPUSCULAR HEMOGLOBIN 30 pg (25-35); MEAN CORPUSCULAR HGB CONC 34 g/dL (31-37)
[2019-04-13 17:24] LABS: BILIRUBIN,URINE NEGATIVE (NEG); CLARITY,URINE CLEAR; COLOR,URINE YELLOW; NITRITE,URINE NEGATIVE (NEG); PROTEIN,URINE >=300 mg/dL (NEG-TRACE); UROBILINOGEN,URINE 0.2 mg/dL (0.2 mg/dL)
[2019-04-13 17:28] LABS: % BASOS 1 % (0-3); % EOS 4 % (0-5); % LYMPHS 22 % (24-48); % MONOS 9 % (0-10); % SEGS 64 % (35-66); PLT ESTIMATE ADEQUATE (ADEQUATE)
[2019-04-13 17:30] LABS: BARBITURATES NEG (NEG); BENZODIAZEPINES NEG (NEG); CANNABINOIDS NEG (NEG); COCAINE NEG (NEG); METHADONE NEG (NEG); OPIATES POS (NEG); PHENCYCLIDINE NEG (NEG)
[2019-04-13 17:31] LABS: AMPHETAMINE/METHAMPHETAMINE NEG (NEG)
[2019-04-13 17:34] LABS: BACTERIA,URINE 0 /HPF (0-FEW); SQUAMOUS EPITHELIAL CELL,UR FEW /LPF
[2019-04-13 17:43] LABS: BUN/CREATININE RATIO 27 (6-20); CREATININE 0.6 mg/dL (0.6-1.0); GFR 109.1
--- NOTE | 2019-04-13 18:44 | PHYS DOC ---
Past Medical History Past Medical History: Diabetes-Type II, DVT, High Cholesterol, Hypertension, Other Additional Past Medical Histor: PE, COMPARTMENT SYNDROME, HOOPA, Gallstones Past Surgical History: , Tubal ligation, Other Additional Past Surgical Histo: bilateral AKA Alcohol Use: Rarely Drug Use: None Adult General Chief Complaint Chief Complaint: ABDOMINAL PAIN HPI HPI Patient is a 43 year old female with history of diabetes type 2, hypertension, high cholesterol, bilateral below the knee amputations, who presents to the ED today complaining of 7 out of 10 sharp left flank pain, left upper quadrant pain, symptoms began a week ago while on vacation in [place]. Patient denies anything specifically exacerbating or relieving symptoms. Denies any nausea vomi ting. Review of Systems Review of Systems Constitutional: Denies fever or chills [] Eyes: Denies change in visual acuity, redness, or eye pain [] HENT: Denies nasal congestion or sore throat [] Respiratory: Denies cough or shortness of breath [] Cardiovascular: No additional information not addressed in HPI [] GI: Reports left upper quadrant abdominal pain, denies nausea, vomiting, bloody stools or diarrhea [] : Denies dysuria or hematuria [] Musculoskeletal: Denies back pain or joint pain [] Integument: Denies rash or skin lesions [] Neurologic: Denies headache, focal weakness or sensory changes [] All other systems were reviewed and found to be within normal limits, except as documented in this note. Current Medications Current Medications Current Medications Medications (Trade) Dose Ordered Sig/[facility] Start Time Stop Time Status Last Admin Dose Admin Ketorolac Tromethamine (Toradol 30mg Vial) 30 mg 1X ONCE 04/13/19 15:45 04/13/19 15:52 DC 04/13/19 16:07 30 MG Ondansetron HCl (Zofran) 4 mg 1X ONCE 04/13/19 15:45 04/13/19 15:52 DC 04/13/19 16:07 4 MG Allergies Allergies Allergies Coded Allergies Type Severity Reaction Last Updated Verified codeine Allergy Intermediate 06/17/15 No Physical Exam Physical Exam Constitutional: Well developed, well nourished, no acute distress, non-toxic appearance. [] HENT: Normocephalic, atraumatic, bilateral external ears normal, oropharynx moist, no oral exudates, nose normal. [] Eyes: PERRLA, EOMI, conjunctiva normal, no discharge. [] Neck: Normal range of motion, no tenderness, supple, no stridor. [] Cardiovascular:Heart rate regular rhythm, no murmur [] Lungs & Thorax: Bilateral breath sounds clear to auscultation [] Abdomen: Rounded abdomen. Bowel sounds normal, soft, tenderness on palpation of the left upper quadrant, no right upper quadrant or right lower quadrant tenderness, no masses, no pulsatile masses. [] Skin: Warm, dry, no erythema, no rash. [] Back: No tenderness, no CVA tenderness. [] Extremities: Bilateral below the knee amputations. No tenderness, no cyanosis, no clubbing, ROM intact, no edema. [] Neurologic: Alert and oriented X 3, normal motor function, normal sensory function, no focal deficits noted. [] Psychologic: Affect normal, judgement normal, mood normal. [] Current Patient Data Vital Signs Vital Signs Date Time Temp Pulse Resp B/P (MAP) Pulse Ox O2 Delivery O2 Flow Rate FiO2 04/13/19 15:32 98.1 81 16 169/82 (111) 93 98.1 Lab Values Laboratory Tests Test 04/13/19 16:07 04/13/19 17:16 White Blood Count 7.4 x10^3/uL (4.0-11.0) Red Blood Count 4.56 x10^6/uL (3.50-5.40) Hemoglobin 13.9 g/dL (12.0-15.5) Hematocrit 40.8 % (36.0-47.0) Mean Corpuscular Volume 90 fL (79-100) Mean Corpuscular Hemoglobin 30 pg (25-35) Mean Corpuscular Hemoglobin Concent 34 g/dL (31-37) Red Cell Distribution Width 14.1 % (11.5-14.5) Platelet Count 298 x10^3/uL (140-400) Neutrophils (%) (Auto) 64 % (31-73) Lymphocytes (%) (Auto) 16 % (24-48) L Monocytes (%) (Auto) 14 % (0-9) H Eosinophils (%) (Auto) 4 % (0-3) H Basophils (%) (Auto) 2 % (0-3) Neutrophils # (Auto) 4.8 x10^3/uL (1.8-7.7) Lymphocytes # (Auto) 1.2 x10^3/uL (1.0-4.8) Monocytes # (Auto) 1.0 x10^3/uL (0.0-1.1) Eosinophils # (Auto) 0.3 x10^3/uL (0.0-0.7) Basophils # (Auto) 0.2 x10^3/uL (0.0-0.2) Segmented Neutrophils % 64 % (35-66) Lymphocytes % 22 % (24-48) L Monocytes % 9 % (0-10) Eosinophils % 4 % (0-5) Basophils % 1 % (0-3) Platelet Estimate Adequate (ADEQUATE) Sodium Level 125 mmol/L (136-145) L Potassium Level 4.4 mmol/L (3.5-5.1) Chloride Level 91 mmol/L (98-107) L Carbon Dioxide Level 26 mmol/L (21-32) Anion Gap 8 (6-14) Blood Urea Nitrogen 16 mg/dL (7-20) Creatinine 0.6 mg/dL (0.6-1.0) Estimated GFR (Cockcroft-Gault) 109.1 BUN/Creatinine Ratio 27 (6-20) H Glucose Level 441 mg/dL (70-99) H Calcium Level 6.8 mg/dL (8.5-10.1) L Magnesium Level 1.5 mg/dL (1.8-2.4) L Total Bilirubin 0.6 mg/dL (0.2-1.0) Aspartate Amino Transferase (AST) U/L (15-37) Alanine Aminotransferase (ALT) 35 U/L (14-59) Alkaline Phosphatase 71 U/L (46-116) Total Protein 6.6 g/dL (6.4-8.2) Albumin 2.3 g/dL (3.4-5.0) L Albumin/Globulin Ratio 0.5 (1.0-1.7) L Ethyl Alcohol Level < 10 mg/dL (0-10) Urine Collection Type Unknown Urine Color Yellow Urine Clarity Clear Urine pH 6.0 Urine Specific [place] >=1.030 Urine Protein >=300 mg/dL (NEG-TRACE) Urine Glucose (UA) >=1000 mg/dL (NEG) Urine Ketones (Stick) Negative mg/dL (NEG) Urine Blood Trace (NEG) Urine Nitrite Negative (NEG) Urine Bilirubin Negative (NEG) Urine Urobilinogen Dipstick 0.2 mg/dL (0.2 mg/dL) Urine Leukocyte Esterase Negative (NEG) Urine RBC 3-5 /HPF (0-2) Urine WBC 1-4 /HPF (0-4) Urine Squamous Epithelial Cells Few /LPF Urine Bacteria 0 /HPF (0-FEW) Urine Mucus Slight /LPF Urine Opiates Screen Pos (NEG) Urine Methadone Screen Neg (NEG) Urine Barbiturates Neg (NEG) Urine Phencyclidine Screen Neg (NEG) Urine Amphetamine/Methamphetamine Neg (NEG) Urine Benzodiazepines Screen Neg (NEG) Urine Cocaine Screen Neg (NEG) Urine Cannabinoids Screen Neg (NEG) Urine Ethyl Alcohol Neg (NEG) Laboratory Tests 04/13/19 16:07 Laboratory Tests 04/13/19 16:07 EKG EKG [] Radiology/Procedures Radiology/Procedures []PROCEDURE: CT ABDOMEN PELVIS WO CONTRAST PQRS Compliance Statement: One or more of the following individualized dose reduction techniques were utilized for this examination: 1. Automated exposure control 2. Adjustment of the mA and/or kV according to patient size 3. Use of iterative reconstruction technique CT ABDOMEN PELVIS WO CONTRAST Clinical Indication: Flank pain on the left. Comparison: CT abdomen and pelvis with contrast December 05, 2018. Technique: Helical CT imaging of the abdomen and pelvis is performed without IV or oral contrast. Findings: Evaluation of solid organs and bowel is limited without oral and IV contrast, decreasing sensitivity for detection of pathology. There is mosaic attenuation pattern of groundglass opacities in the lung bases. Linear opacities in the right middle lobe and lingula may be scarring or discoid atelectasis. Lung base appearance is similar to prior study. Coronary artery disease. Cardiac size is normal. There is moderate fatty infiltration of the liver. There is hepatomegaly. Cholecystectomy. The spleen, pancreas, adrenal glands, and abdominal aorta caliber are normal. 2 tiny calcifications in the left kidney may be vascular. No hydronephrosis is seen. There is no ureteral calculus. Stomach unremarkable. Small fat-containing umbilical hernia. There is no dilated small bowel. Moderate colon stool volume. No colon wall thickening. The appendix is normal. No abdominal adenopathy or free fluid. Urinary bladder is mildly distended, otherwise normal. Uterus and ovaries unremarkable. No pelvic free fluid. There are left inguinal surgical clips. No acute bone abnormality. IMPRESSION: 1. No obstructive uropathy. 2. Mosaic attenuation pattern in the lung bases is again noted, common etiology is small airways disease. 3. Hepatomegaly. Fatty infiltration of the liver. Electronically signed by: Gareth Baig MD (04/13/2019 5:01 PM) [facility] DICTATED and SIGNED BY: GARETH BAIG MD DATE: 04/13/19 7616 Course & Med Decision Making Course & Med Decision Making Pertinent Labs and Imaging studies reviewed. (See chart for details) This is a 43-year-old female patient presenting to the ED today with left upper quadrant abdominal pain, left flank pain, symptoms began a week ago while in [place]. CBC with no acute findings, CMP with sodium of 125, glucose 441, anion gap is normal. Offered patient admission, she refused, she signed out AMA. Patient is alert and oriented and able to make her own decisions. She understands the list of leaving AMA including and disability. She states she'll follow-up with her own doctor tomorrow. Dragon Disclaimer Dragon Disclaimer This electronic medical record was generated, in whole or in part, using a voice recognition dictation system. Departure Departure Impression: Primary Impression: Hyponatremia Additional Impressions: Acute flank pain Left upper quadrant pain Disposition: 07 AGAINST MEDICAL ADVICE Condition: STABLE Referrals: SORAYA MOORE MD (PCP) Problem Qualifiers DEISY RUIZ APRN Apr 13, 2019 18:44
== END 2019-04-13 18:53 | disposition left against medical advice (07) ==
LOC: ER 14:32
DX: R10.12 Left upper quadrant pain (principal); E87.1 Hypo-osmolality and hyponatremia; E78.00 Pure hypercholesterolemia, unspecified; E11.9 Type 2 diabetes mellitus without complications; I10 Essential (primary) hypertension; Z98.51 Tubal ligation status; Z86.718 Personal history of other venous thrombosis and embolism; Z88.5 Allergy status to narcotic agent
CPT/HCPCS: 36415; 74176; 80053; 80307; 81001; 83735; 85007; 85025; 96374; 96375; 99285; G0480; J1885; J2405

== ENCOUNTER 2019-04-25 22:10 | Emergency (ER) | payer OTHER ==
[~2019-04-25] VITALS: Ht 91.4 cm; Wt 86.2 kg
[2019-04-25] MEDS ORDERED: HYDR-3164 PO (22:50)
[2019-04-25 23:00] VITALS: BP 166/78
--- NOTE | 2019-04-26 01:01 | PHYS DOC ---
Past Medical History Past Medical History: Diabetes-Type II, DVT, High Cholesterol, Hypertension, Other Additional Past Medical Histor: PE, COMPARTMENT SYNDROME, LIME, Gallstones Past Surgical History: , Tubal ligation, Other Additional Past Surgical Histo: bilateral AKA Alcohol Use: Rarely Drug Use: None Adult General Chief Complaint Chief Complaint: ABDOMINAL PAIN HPI HPI Patient is a 43 year old see mdm for hpi Review of Systems Review of Systems Constitutional: Denies fever or chills [] Eyes: Denies change in visual acuity, redness, or eye pain [] HENT: Denies nasal congestion or sore throat [] Respiratory: Denies cough or shortness of breath [] Cardiovascular: \ Musculoskeletal: Integument: Denies rash or skin lesions [] Neurologic: Denies headache, focal weakness or sensory changes [] Endocrine: Denies polyuria or polydipsia [] All other systems were reviewed and found to be within normal limits, except as documented in this note. Allergies Allergies Allergies Coded Allergies Type Severity Reaction Last Updated Verified codeine Allergy Intermediate 06/17/15 No Physical Exam Physical Exam Constitutional: Well developed, well nourished, no acute distress, non-toxic appearance. [] HENT: Normocephalic, atraumatic, bilateral external ears normal, oropharynx moist, no oral exudates, nose normal. [] Eyes: PERRLA, EOMI, conjunctiva normal, no discharge. [] Neck: Normal range of motion, no tenderness, supple, no stridor. [] Cardiovascular:Heart rate regular rhythm, no murmur [] Lungs & Thorax: Bilateral breath sounds clear to auscultation [] Abdomen: Bowel sounds normal, soft, no sign abdo tenderness, no masses, no pulsatile masses. [] Skin: Warm, dry, no erythema, no rash. [] Back: No tenderness,mild left cva ttp noted Extremities:there is b/l aka noted. no infection. Neurologic: Alert and oriented X 3, normal motor function, normal sensory function, no focal deficits noted. [] Psychologic: Affect normal, judgement normal, mood normal. [] Current Patient Data Vital Signs Vital Signs Date Time Temp Pulse Resp B/P (MAP) Pulse Ox O2 Delivery O2 Flow Rate FiO2 04/25/19 23:00 80 18 166/78 (107) 98 Room Air 04/25/19 22:32 98.5 98.5 EKG EKG [] Radiology/Procedures Radiology/Procedures [] Course & Med Decision Making Course & Med Decision Making Pertinent Labs and Imaging studies reviewed. (See chart for details) []hx of chronic pain on oxycontin and hydrocodone checked ktracs normally gets monthly refills but apparently needed a prior auth per the patient for this months fill date (yesterday the ) [facility] outside [facility] from [facility] recent admit for colitis, ct showed rectosigmoid colitis (although our ct on 04/08 did not show that). perhaps it was underdistension but she is having diarrhea so was put on antibiotics at [facility] she still has left flank pain radiating to groin and lower abdomen, has had this for several weeks if not longer dull left side improved with pain meds but she is out. normally chronic pain due to neuropathy as well. she would like refill of pain medication and also wants to check in on the colitis. known diabetes poorly controlled a1c she is working on her diet she tells me. in summary, she was just hospitalized and d/c'd she is overall stable appearing,abdo exam fairly benign, two ct's in the last three weeks, dont want to repeat that now. i gave her enough hydrocodone for the weekend, finish abx prescribed at [facility], she has the bottles with her ordered stool culture she couldnt produce in er as far as i know recommended f/u with primary doctor next week should the symptoms persist. Jackie Disclaimer Jackie Disclaimer This electronic medical record was generated, in whole or in part, using a voice recognition dictation system. Departure Departure Impression: Primary Impression: Colitis Disposition: HOME, SELF-CARE Condition: STABLE Referrals: UNKNOWN PCP NAME (PCP) Patient Instructions: Colitis Additional Instructions: see doctor in 3-5 days if symptoms persist. Scripts Hydrocodone/Apap 5-325 (NORCO 5-325 TABLET) 1 Each Tablet 1-2 EACH PO PRN Q6HRS PRN for PAIN, #15 as needed for pain Prov: MORIAH BROWNLEE MD 04/25/19 MORIAH BROWNLEE MD Apr 26, 2019 01:01
== END 2019-04-25 23:00 | disposition home or self-care (01) ==
LOC: ER 22:10
DX: K52.9 Noninfective gastroenteritis and colitis, unspecified (principal); E11.9 Type 2 diabetes mellitus without complications; E78.00 Pure hypercholesterolemia, unspecified; I10 Essential (primary) hypertension; Z86.718 Personal history of other venous thrombosis and embolism; Z98.890 Other specified postprocedural states; Z98.51 Tubal ligation status; Z89.612 Acquired absence of left leg above knee; Z89.611 Acquired absence of right leg above knee; Z88.5 Allergy status to narcotic agent
CPT/HCPCS: 99284

== ENCOUNTER → 2019-06-16 | Day surgery (SDC) | payer OTHER ==
[~2019-06-16] MED LIST changes: +ASPI-630 PO; +CETI10TA16 PO; +CRESTOR40 MG PO; +EXEN2PEN SQ; +HYDR-2761 PO; +INSU100V13 SQ; +IV RINGERS,LACTATED 1000ML 1,000 ML IV SCH; +LIDOCAINE 1% PF 2 ML VIAL. ID PRN; +LIDOCAINE 2% PF 5 ML VIAL. ONE; +LOSA-73 PO; +MIDAZOLAM HCL/PF 2 MG/2 ML VIAL. IV PRN; +OMEP40CA45 PO; +PROPOFOL 20 ML IV ONE; +RIVA20TA2 PO; +SITA100T PO; +fentaNYL PF VIAL 100 MCG/2 ML VIAL IV PRN
--- NOTE | 2019-06-16 13:28 | PDOC4 ---
PROCEDURE Procedure EGD/biopsies Indication; Chronic heartburn, r/o Hernandez's. Medication: per anesthesia. Findings: E--Healing erosive (B to C) esophagitis at 39-40cm. Question of tongue of Hernandez's, biopsied. G--normal D--Normal to second portion. Anish. well. IMP: GERD; biopsies pending to r/o Hernandez's. REC: Continue meds, diet as before. Await biopsies. F/u in 2 weeks. PHILLIP VOSS MD Jun 16, 2019 13:28
[2019-06-16 13:43] VITALS: BP 155/72
--- NOTE | 2019-06-17 14:07 | PATHOLOGY ---
[facility] Accession Number: [id number] . 01 Material submitted: . esophagus - DISTAL ESOPHAGUS BX. Modifiers: distal . 01 Clinical history: . Reflux . 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 - There is no evidence of dysplasia or malignancy. (See comment) . (SHA:mm; 06/17/2019) [facility] 06/17/2019 0931 Local . 02 Comment: This case is also reviewed by Dr. Wes Hutchins. . (SHA:mm; 06/17/2019) . 02 Electronically signed: . Estevan Jackson MD, Pathologist NPI- [id number] . 01 Gross description: . Received in formalin labeled "Rip, Juliette, distal esophagus," are 2 segments of chacko soft tissue measuring 0.7 x 0.3 x 0.2 cm in aggregate dimensions and ranging from 0.3 to 0.4 cm in maximum dimension. The specimen is submitted entirely in cassette A1. (TSD; 06/16/2019) TOB/TOB 06/16/20191956 Local . 02 Pathologist provided ICD-10: K21.0, K22.70 . 02 CPT . 706724 Specimen Comment: A courtesy copy of this report has been sent to Specimen Comment: [phone], . Specimen Comment: Report sent to / DR MARSH Specimen Comment: A duplicate report has been generated due to demographic updates. Performed at: [address], [place], [place] [id number] MD Jasiel Mcqeuen MD Phone: [phone] Performed at: 02 [facility] [address] [place], [place] [id number] MD Angel Mukherjee MD Phone: [phone]
== END ==
LOC: ENDOS 12:24
PROVIDERS: ATTEND Internal Medicine Gastroenterology
DX: K21.0 Gastro-esophageal reflux disease with esophagitis (principal); E78.00 Pure hypercholesterolemia, unspecified; E11.9 Type 2 diabetes mellitus without complications; I10 Essential (primary) hypertension; F15.90 Other stimulant use, unspecified, uncomplicated; Z88.5 Allergy status to narcotic agent; Z88.8 Allergy status to other drugs, medicaments and biological substances; Z79.82 Long term (current) use of aspirin; Z79.84 Long term (current) use of oral hypoglycemic drugs
CPT/HCPCS: 43239; 82962; J2001; J2704; 88305

== ENCOUNTER 2019-07-30 22:50 | Emergency (ER) | payer OTHER ==
[~2019-07-30] VITALS: Ht 170.2 cm; Wt 86.2 kg
[~2019-07-30 22:50] MED LIST changes: -IV RINGERS,LACTATED 1000ML 1,000 ML IV SCH; -LIDOCAINE 1% PF 2 ML VIAL. ID PRN; -LIDOCAINE 2% PF 5 ML VIAL. ONE; -MIDAZOLAM HCL/PF 2 MG/2 ML VIAL. IV PRN; -PROPOFOL 20 ML IV ONE; -fentaNYL PF VIAL 100 MCG/2 ML VIAL IV PRN
[2019-07-30 23:02] VITALS: BP 187/97
--- NOTE | 2019-07-30 23:12 | PHYS DOC ---
Past Medical History Past Medical History: Diabetes-Type II, DVT, High Cholesterol, Hypertension, Other Additional Past Medical Histor: PE, COMPARTMENT SYNDROME, FLANDREAU, Gallstones, COLITIS Past Surgical History: , Tubal ligation, Other Additional Past Surgical Histo: bilateral AKA Alcohol Use: Rarely Drug Use: None Adult General Chief Complaint Chief Complaint: SORE THROAT HPI HPI Patient is a 43 year old female with history of hypertension, dyslipidemia, diabetes mellitus, DVT and bilateral above-knee amputation who presents with complaining of problem with swallowing. Patient complaining of left cervical glands pain and tenderness. 1 week and problem with swallowing and talking at the same time. Patient denies fever and chills, cough and congestion, nausea and vomiting, sick contact. Review of Systems Review of Systems Constitutional: Denies fever or chills [] Eyes: Denies change in visual acuity, redness, or eye pain [] HENT: Denies nasal congestion, reports sore throat [] Respiratory: Denies cough or shortness of breath [] Cardiovascular: No additional information not addressed in HPI [] GI: Denies abdominal pain, nausea, vomiting, bloody stools or diarrhea [] : Denies dysuria or hematuria [] Musculoskeletal: Denies back pain or joint pain [] Integument: Denies rash or skin lesions [] Neurologic: Denies headache, focal weakness or sensory changes [] Endocrine: Denies polyuria or polydipsia [] All other systems were reviewed and found to be within normal limits, except as documented in this note. Allergies Allergies Allergies Coded Allergies Type Severity Reaction Last Updated Verified codeine Allergy Intermediate Nausea and Vomiting 06/16/19 Yes Physical Exam Physical Exam Constitutional: Well developed, well nourished, no acute distress, non-toxic appearance. [] HENT: Normocephalic, atraumatic, bilateral external ears normal, oropharynx moist, tonsillar edema and erythema no oral exudates, nose normal. [] Eyes: PERRLA, EOMI, conjunctiva normal, no discharge. [] Neck: Normal range of motion, no tenderness, supple, no stridor, left cervical lymphadenopathy. [] Cardiovascular:Heart rate regular rhythm, no murmur [] Lungs & Thorax: Bilateral breath sounds clear to auscultation [] Extremities: No tenderness, no cyanosis, no clubbing, ROM intact, no edema. [] Neurologic: Alert and oriented X 3, normal motor function, normal sensory function, no focal deficits noted. [] Psychologic: Affect normal, judgement normal, mood normal. [] Current Patient Data Vital Signs Vital Signs Date Time Temp Pulse Resp B/P (MAP) Pulse Ox O2 Delivery O2 Flow Rate FiO2 07/30/19 23:02 98.3 86 16 187/97 (127) 96 Room Air 98.3 EKG EKG [] Radiology/Procedures Radiology/Procedures [] Course & Med Decision Making Course & Med Decision Making Pertinent Labs reviewed. (See chart for details) discharge: I've spoken with the patient and/or caregivers. I've explained the patient's condition, diagnosis and treatment plan based on information available to me at this time. I've answered the patient's and/or caregivers questions and addressed any concerns. The patient and/or caregivers have a good understanding the patient's diagnosis, condition and treatment plan as can be expected at this point. Vital signs have been stabilized. The patient's condition is stable for discharge from the emergency department. The patient will pursue further outpatient evaluation with her primary care provider or other designated consulting physician as outlined in the discharge instructions. Patient and/or caregivers are agreeable to this plan of care and follow-up instructions have been explained in detail. The patient and/or caregivers have received these instructions in written format and expressed understanding of these discharge instructions. The patient and her caregivers are aware that if any significant change in condition or worsening of symptoms should prompt him to immediately return to this of the closest emergency department. If an emergent department is not readily available I would encou rage him to call 911. Jackie Disclaimer Dragon Disclaimer This electronic medical record was generated, in whole or in part, using a voice recognition dictation system. Departure Departure Impression: Primary Impression: Pharyngitis Disposition: HOME, SELF-CARE (at 2238) Condition: STABLE Referrals: DB MARSH (PCP) Patient Instructions: Viral and Bacterial Pharyngitis Additional Instructions: Drink plenty of liquids Follow-up with your primary care physician in 3-5 days Return to ER if not getting better Scripts Azithromycin (ZITHROMAX) 250 Mg Tablet 250 MG PO DAILY for ANTI-BIOTIC, #6 TAB 0 Refills Take 2 pills by mouth for the first day and then Take 1 pill by mouth every 24 hours for the next 4 days Prov: HANK LUCAS MD 07/30/19 Tramadol Hcl (ULTRAM) 50 Mg Tablet 50 MG PO Q6HRS PRN for PAIN, #10 TAB 0 Refills Prov: HANK LUCAS MD 07/30/19 Problem Qualifiers Primary Impression: Pharyngitis Pharyngitis/tonsillitis etiology: unspecified etiology Qualified Codes: J02.9 - Acute pharyngitis, unspecified HANK LUCAS MD Jul 30, 2019 23:12
[2019-07-30] MEDS ORDERED: AZIT250T PO (23:40)
[2019-07-30] MEDS ORDERED: TRAM-48 PO (23:40)
== END 2019-07-31 00:44 | disposition home or self-care (01) ==
LOC: ER 22:50
DX: J02.9 Acute pharyngitis, unspecified (principal); R13.10 Dysphagia, unspecified; M54.2 Cervicalgia; E11.9 Type 2 diabetes mellitus without complications; E78.00 Pure hypercholesterolemia, unspecified; I10 Essential (primary) hypertension; Z86.718 Personal history of other venous thrombosis and embolism; Z88.5 Allergy status to narcotic agent
CPT/HCPCS: 87070; 87880; 99284